=== PATIENT | female | born 1950 | race Asian ===

== ENCOUNTER 2017-01-25 13:04 | Emergency (ER) | payer OTHER ==
[2017-01-25 13:09] VITALS: TEMP 98.3; BMI 24.7
--- NOTE | 2017-01-25 14:34 | PDOC ---
History of Present Illness - General Chief Complaint: Pain Stated Complaint: ABD PAIN (PCP SENT) Time Seen by Provider: 01/25/17 13:17 History Source: Patient Exam Limitations: Language Barrier - History of Present Illness Travel History: No Initial Comments: 01/25/17 14:31 66-year-old female sent in from her primary care physician for evaluation of left lower quadrant abdominal pain that started a few days ago and has worsened. Patient denies fever, chills, dysuria, bowel complaints, history of colitis, or disorders. Timing/Duration: reports: constant Quality: reports: moderate, cramping Abdominal Pain Onset Location: reports: LLQ Pain Radiation: reports: no radiation Activities at Onset: reports: none Aggravating Factors: improves with: None Alleviating Factors: improves with: None Past History - Past Medical History Allergies/Adverse Reactions: Allergies Allergy/AdvReac Type Severity Reaction Status Date / Time No Known Allergies Allergy Verified 01/25/17 13:05 Diabetes: Yes HTN: Yes Hypercholesterolemia: Yes - Psycho/Social/Smoking Cessation Hx Anxiety: No Suicidal Ideation: No Smoking History: Never smoked Have you smoked in the past 12 months: No Information on smoking cessation initiated: No Hx Alcohol Use: No Drug/Substance Use Hx: No Substance Use Type: None Patient Lives Alone: No Lives with/in: spouse/SO Abd/GI Specific PMHX - Complaint Specific PMHX Colitis: No Diverticulitis: No Review of Systems - Review of Systems Able to Perform ROS?: Yes Constitutional: No: Symptoms Reported Respiratory: No: Symptoms reported Cardiac (ROS): No: Symptoms Reported ABD/GI: Yes: Abdominal cramping : No: Symptoms Reported Musculoskeletal: No: Symptoms Reported Integumentary: No: Symptoms Reported Neurological: No: Symptoms reported Endocrine: No: Symptoms Reported Hematologic/Lymphatic: No: Symptoms Reported *Physical Exam - Vital Signs Last Vital Signs Temp Pulse Resp BP Pulse Ox 98.3 F 78 18 176/80 99 01/25/17 13:06 01/25/17 13:06 01/25/17 13:06 01/25/17 13:06 01/25/17 13:06 - Physical Exam General Appearance: Yes: Nourished, Appropriately Dressed. No: Apparent Distress HEENT: positive: EOMI, JUNG. negative: Pale Conjunctivae Neck: positive: Supple Respiratory/Chest: positive: Lungs Clear, Normal Breath Sounds. negative: Respiratory Distress, Accessory Muscle Use Cardiovascular: positive: Regular Rhythm, Regular Rate. negative: Murmur Gastrointestinal/Abdominal: positive: Normal Bowel Sounds, Soft, Guarding, Rebound, Tenderness (left lower quadrant and mild left flank). negative: Distended, Hernia, Mass Musculoskeletal: negative: CVA Tenderness Extremity: positive: Normal Capillary Refill. negative: Pedal Edema Integumentary: positive: Normal Color, Warm, Moist Neurologic: positive: Motor Strength 5/5 (ambulatory) ED Treatment Course - LABORATORY CBC & Chemistry Diagram: 01/25/17 14:25 01/25/17 14:25 - RADIOLOGY Radiology Studies Ordered: Category Date Time Status ABDOMEN & PELVIS CT WITH CONTR [CT] Stat CT Scan 01/25/17 14:04 Ordered Medical Decision Making - Medical Decision Making 01/25/17 14:33 Patient sent here for evaluation of left lower quadrant pain by her PCP. Patient exhibited left lower quadrant pain with mild guarding and rebound. Patient no CVA tenderness on exam. Patient ordered for labs including urinalysis urine culture and CT 01/25/17 17:27 Laboratory Tests 01/25/17 01/25/17 01/25/17 14:25 14:25 15:10 WBC 9.0 Hgb 12.2 Hct 35.9 Neutrophils % 69.7 Lymphocytes % 23.6 Sodium 140 Potassium 3.6 Chloride 100 Carbon Dioxide 28 Anion Gap 12 BUN 16 Creatinine 0.6 Creat Clearance w eGFR > 60 Random Glucose 119 H Calcium 10.0 Total Bilirubin 0.4 AST 28 ALT 47 Alkaline Phosphatase 64 Total Protein 8.0 Albumin 4.2 Urine Ketones Negative Urine Nitrite Negative Ur Leukocyte Esterase Negative CT shows mild stranding in the left lower quadrant surrounding the junction of the distal descending and proximal sigmoid colon suggestion of wall thickening. Differential diagnosis includes colitis, diverticulitis andepiplios appendagitis. Patient has no white count woke up with the diarrhea but will order cipro and Flagyl with GI referral 01/25/17 17:30 *DC/Admit/Observation/Transfer Diagnosis at time of Disposition: Diverticulitis Qualifiers: Diverticulitis bleeding: without bleeding Diverticulitis complication: without perforation or abscess - Discharge Dispostion Disposition: HOME Condition at time of disposition: Good - Referrals Referrals: Cortez Benton MD [Primary Care Provider] - Stewart Castillo MD [Staff Physician] - - Patient Instructions Printed Discharge Instructions: DI for Diverticulitis Additional Instructions: Please take medication as prescribed until completed and follow up with referred clinical sociologist.
[2017-01-25 14:45] LABS: BASOPHIL 0.5 % (0-2.0); EOSINOPHIL 0.9 % (0-4.5); MCH 29.8 pg (25.7-33.7); MCHC 33.9 g/dl (32.0-36.0); MEAN CELL VOLUME 87.9 fl (80-96); MEAN PLT VOLUME 6.8 fl (7.5-11.1); NEUTROPHILS 69.7 % (42.8-82.8); PLATELET COUNT 324 K/MM3 (134-434)
[2017-01-25 15:10] LABS: ALBUMIN 4.2 g/dl (3.4-5.0); ANION GAP 12 (8-16); CO2 28 mmol/L (21-32); CREATININE 0.6 mg/dL (0.55-1.02); GLUCOSE,RANDOM 119 mg/dL (74-106); SGOT/AST 28 U/L (15-37); SGPT/ALT 47 U/L (12-78)
[2017-01-25 15:12] LABS: ALK PHOS 64 U/L (45-117); BILIRUBIN,TOTAL 0.4 mg/dL (0.2-1.0)
[2017-01-25 15:39] LABS: URINE APPEARANCE CLEAR; URINE BILIRUBIN NEGATIVE (NEGATIVE); URINE BLOOD NEGATIVE (NEGATIVE); URINE COLOR COLORLESS; URINE GLUCOSE (UA) NEGATIVE (NEGATIVE); URINE KETONE NEGATIVE (NEGATIVE); URINE LEUK ESTERASE NEGATIVE (NEGATIVE); URINE NITRITE NEGATIVE (NEGATIVE); URINE PROTEIN NEGATIVE (NEGATIVE); URINE UROBILINOGEN NEGATIVE E.U./dl (0.2-1.0)
[2017-01-25 18:44] VITALS: BP 140/88; PULSE 80
== END 2017-01-25 18:44 | disposition home or self-care (01) ==
LOC: JER 13:04
DX: K57.20 Diverticulitis of large intestine with perforation and abscess without bleeding (principal); E11.9 Type 2 diabetes mellitus without complications; E78.00 Pure hypercholesterolemia, unspecified; I10 Essential (primary) hypertension
CPT/HCPCS: 36415; 74177-TC; 80053; 81003; 85025; 85379; 87086; 99282-25